=== PATIENT | female | born 1980 | race American Indian/Alaskan Native ===

== ENCOUNTER 2017-03-24 10:41 | Outpatient (CLI) | payer BC ==
--- NOTE | 2017-03-24 14:19 | Fluoroscopy Report ---
UPPER GI SERIES WITH AIR-CONTRAST History: Reflux, pain. Gastric sleeve surgery. Findings: [employer] film of the abdomen is within normal limits. The patient reports gastric sleeve surgery in 2013 at another facility. There are no studies for comparison at this facility. Deglutition is normal. There is no evidence for aspiration. The esophagus has normal caliber and mucosal pattern throughout. No hiatal hernia or reflux was witnessed during this exam. The gastric cavity is within normal limits. Gastric sleeve surgical changes are suspected. There is no evidence for obstruction, ulceration or extravasation. The duodenal bulb and duodenal sweep are normal. Impression: No abnormality identified.
== END 2017-03-24 10:42 | disposition home or self-care (01) ==
LOC: FLUORO 10:41
PROVIDERS: ATTEND Specialist
DX: K21.9 Gastro-esophageal reflux disease without esophagitis (principal); Z98.890 Other specified postprocedural states
CPT/HCPCS: 74246